=== PATIENT | female | born 1970 | race Caucasian/White ===

== ENCOUNTER 2017-08-05 13:51 | Inpatient (IN) | payer MEDICAID ==
[~2017-08-05] VITALS: Ht 154.9 cm; Wt 40.0 kg
[~2017-08-05 13:51] MED LIST: TRAM50TA2 PO
[2017-08-05] MEDS ORDERED: azithromycin 250mg tablet PO ONE (14:25)
[2017-08-05] MEDS ORDERED: CefTRIAXone 2gm/D5W 50ml 50 ML IV ONE (14:25)
[2017-08-05] MEDS ORDERED: ipratropium/albuterol 3ml nebule NEB ONE (14:25)
[2017-08-05] MEDS ORDERED: dexamethasone 4mg tablet PO ONE (14:25)
[2017-08-05] MEDS ORDERED: normal saline 1000ML IV soln IV ONE (14:25)
[2017-08-05 14:53] LABS: BASOPHILS # (AUTO) 0.1 X10'3 (0-0.2); BASOPHILS % (AUTO) 0.5 % (0-1); EOSINOPHILS # (AUTO) 0.2 X10'3 (0-0.9); EOSINOPHILS % (AUTO) 1.3 % (0-6); HEMATOCRIT 40.5 % (35.0-45.0); HEMOGLOBIN 13.6 g/dl (12.0-16.0); LYMPHOCYTES # (AUTO) 1.3 X10'3 (1.1-4.8); LYMPHOCYTES % (AUTO) 7.5 % (21-51); MEAN CORPUSCULAR HEMOGLOBIN 30.2 PG (27.0-31.0); MEAN CORPUSCULAR HGB CONC 33.5 % (33.0-36.5); MEAN CORPUSCULAR VOLUME 90.3 FL (78-98); MEAN PLATELET VOLUME 7.5 FL (7.4-10.4); MONOCYTES # (AUTO) 0.9 X10'3 (0-0.9); MONOCYTES % (AUTO) 5.4 % (2-12); NEUTROPHILS # (AUTO) 14.7 X10'3 (1.8-7.7); NEUTROPHILS % (AUTO) 85.3 % (42-75); PLATELET COUNT 353 X10'3 (140-440); RED BLOOD COUNT 4.48 X10'6 (4.20-5.60); RED CELL DISTRIBUTION WIDTH 14.8 % (11.5-14.5); WHITE BLOOD COUNT 17.3 X10'3 (4.5-11.0)
[2017-08-05 15:18] LABS: ALANINE AMINOTRANSFERASE 19 U/L (12-78); ALBUMIN 2.4 G/DL (3.4-5.0); ALBUMIN/GLOBULIN RATIO 0.5 (1.1-1.5); ALKALINE PHOSPHATASE 176 IU/L (46-116); ANION GAP 11 (8-16); ASPARTATE AMINO TRANSFERASE 25 U/L (10-37); BILIRUBIN,TOTAL 1.8 MG/DL (0.1-1.0); BLOOD UREA NITROGEN 9 MG/DL (7-18); BUN/CREATININE RATIO 9.9 (6.6-38.0); CALCIUM 8.8 MG/DL (8.5-10.1); CHLORIDE 94 MMOL/L (99-107); CREATININE 0.91 MG/DL (0.40-0.90); GLUCOSE 90 MG/DL (70-104); SODIUM 133 MMOL/L (135-145); TOTAL CARBON DIOXIDE 27.9 MMOL/L (24-32); TOTAL PROTEIN 7.5 G/DL (6.4-8.2); eGFR 67 ML/MIN
[2017-08-05 15:20] LABS: POTASSIUM 2.8 MMOL/L (3.5-5.1)
[2017-08-05] MEDS ORDERED: potassium Cl 20 mEq SR tablet PO ONE (15:25)
[2017-08-05] MEDS ORDERED: potassium CL 10mEq/100ml bag 100 ML IV SCH (15:25)
[2017-08-05] MEDS ORDERED: magnesium 2GM in 50ml NS 50 ML IV ONE (15:25)
[2017-08-05 15:47] LABS: MAGNESIUM 1.5 MG/DL (1.5-2.4)
[2017-08-05] MEDS: potassium 10mEq/100ml NS w/LIDOcaine (10mg/bag) IV SCH ×2 (16:38→16:41)
[2017-08-05] MEDS: normal saline 1000ml 1,000 ML IV SCH ×2 (16:52→23:15)
[2017-08-05] MEDS ORDERED: ondansetron/PF 4mg/2ml inj IV PRN (16:55)
[2017-08-05] MEDS ORDERED: ipratropium/albuterol 3ml nebule NEB PRN (16:55)
[2017-08-05] MEDS ORDERED: magnesium 4gm in 100ml NS 100 ML IV PRN (16:55)
[2017-08-05] MEDS ORDERED: mag hydrox/Alum hydrox/simeth 30ml oral suspension PO PRN (16:55)
[2017-08-05] MEDS ORDERED: haloperidol 5mg tablet PO PRN (16:55)
[2017-08-05] MEDS ORDERED: magnesium hydroxide 30ml (MOM) UD suspension PO PRN (16:55)
[2017-08-05] MEDS ORDERED: magnesium 2GM in 50ml NS 50 ML IV PRN (16:55)
[2017-08-05] MEDS ORDERED: LORazepam 2 mg/ml vial IV PRN (16:55)
[2017-08-05] MEDS ORDERED: acetaminophen 325mg tablet PO PRN (16:55)
[2017-08-05] MEDS ORDERED: potassium Cl 40MEQ/NS 500ml 500 ML IV PRN ×2 (16:55)
[2017-08-05] MEDS ORDERED: thiamine 100mg/ml 2ml inj. IV ONE (16:55)
[2017-08-05] MEDS ORDERED: dicyclomine 10 MG capsule PO PRN (16:55)
[2017-08-05] MEDS ORDERED: thiamine inj. 100 MG in normal saline 100ml IV soln 100 ML IV ONE (16:55)
[2017-08-05] MEDS ORDERED: haloperidol lactate 5mg/ml inj IM PRN (16:55)
[2017-08-05] MEDS ORDERED: potassium Cl 20 mEq SR tablet PO PRN (16:55)
[2017-08-05] MEDS ORDERED: dextrose 50%-water 50ml dispensing syringe IV PRN (16:55)
[2017-08-05] MEDS ORDERED: iohexol 350MG/ML 100ml bottle IV ONE (17:42)
[2017-08-05 18:30] VITALS: BP 112/64
[2017-08-05] MEDS: normal saline 1000ml 1,000 ML IV ONE ×2 (19:14→22:15)
[2017-08-05] MEDS: vancomycin/NS 1 GM ADD-VANTAGE 250 ML IV SCH (19:23)
[2017-08-05] MEDS: cefepime inj 2 GM in dextrose 5%-water 50ml 50 ML IV SCH (21:20)
[2017-08-05 23:12] VITALS: BP 99/64
[2017-08-05] MEDS: folic acid inj. 2 MG, thiamine inj. 100 MG, MVI, adult No.4 with vit. K 10 ML in dextro... IV SCH ×4 (23:14)
[2017-08-06] MEDS: normal saline 1000ml 1,000 ML IV SCH ×2 (04:01→09:01)
[2017-08-06 05:44] LABS: PROTHROMBIN TIME 10.2 SECONDS (9.0-12.0)
[2017-08-06 05:48] LABS: BASOPHILS % (AUTO) 0.1 % (0-1); EOSINOPHILS % (AUTO) 0 % (0-6); HEMATOCRIT 33.5 % (35.0-45.0); HEMOGLOBIN 11.3 g/dl (12.0-16.0); LYMPHOCYTES # (AUTO) 0.9 X10'3 (1.1-4.8); LYMPHOCYTES % (AUTO) 8.2 % (21-51); MEAN CORPUSCULAR HEMOGLOBIN 30.5 PG (27.0-31.0); MEAN CORPUSCULAR HGB CONC 33.6 % (33.0-36.5); MEAN CORPUSCULAR VOLUME 90.7 FL (78-98); MEAN PLATELET VOLUME 7.5 FL (7.4-10.4); MONOCYTES # (AUTO) 0.3 X10'3 (0-0.9); MONOCYTES % (AUTO) 3.1 % (2-12); NEUTROPHILS # (AUTO) 9.4 X10'3 (1.8-7.7); NEUTROPHILS % (AUTO) 88.6 % (42-75); PLATELET COUNT 306 X10'3 (140-440); RED CELL DISTRIBUTION WIDTH 14.6 % (11.5-14.5); WHITE BLOOD COUNT 10.6 X10'3 (4.5-11.0)
[2017-08-06 06:15] LABS: ALANINE AMINOTRANSFERASE 18 U/L (12-78); ALBUMIN 1.9 G/DL (3.4-5.0); ALBUMIN/GLOBULIN RATIO 0.4 (1.1-1.5); ALKALINE PHOSPHATASE 135 IU/L (46-116); AMYLASE 68 U/L (25-115); ANION GAP 10 (8-16); ASPARTATE AMINO TRANSFERASE 17 U/L (10-37); BILIRUBIN,TOTAL 0.5 MG/DL (0.1-1.0); BLOOD UREA NITROGEN 10 MG/DL (7-18); BUN/CREATININE RATIO 15.2 (6.6-38.0); CHLORIDE 102 MMOL/L (99-107); CREATININE 0.66 MG/DL (0.40-0.90); GLUCOSE 148 MG/DL (70-104); LIPASE 150 U/L (73-393); MAGNESIUM 1.5 MG/DL (1.5-2.4); PHOSPHORUS 2.6 MG/DL (2.3-4.5); POTASSIUM 3.1 MMOL/L (3.5-5.1); SODIUM 138 MMOL/L (135-145); TOTAL CARBON DIOXIDE 25.9 MMOL/L (24-32); TOTAL PROTEIN 6.2 G/DL (6.4-8.2); eGFR > 90 ML/MIN
[2017-08-06] MEDS: potassium Cl 20 mEq SR tablet PO PRN ×3 (07:13→17:29)
[2017-08-06] MEDS: vancomycin/NS 1 GM ADD-VANTAGE 250 ML IV SCH (07:15)
[2017-08-06] MEDS: K and/or MAG REPLACEMENT MC SCH (07:20)
[2017-08-06] MEDS ORDERED: enoxaparin 30mg/0.3ml syringe SQ SCH (08:00)
[2017-08-06] MEDS: cefepime inj 2 GM in dextrose 5%-water 50ml 50 ML IV SCH (09:12)
[2017-08-06] MEDS: folic acid inj. 2 MG, thiamine inj. 100 MG, MVI, adult No.4 with vit. K 10 ML in dextro... IV SCH ×4 (09:56)
[2017-08-06 11:00] VITALS: BP 110/72
[2017-08-06 11:50] VITALS: BP 113/71
[2017-08-06 11:52] LABS: HIV ANTIBODY 1&2 RAPID NON-REACTIVE (Neg)
[2017-08-06 12:30] VITALS: BP 117/75
[2017-08-06] MEDS: levoFLOXACIN-Levaquin 750MG/D5 150 ML IV SCH (14:31)
[2017-08-06] MEDS: ipratropium/albuterol 3ml nebule NEB SCH ×3 (15:33→23:18)
[2017-08-06] MEDS: Potassium Cl inj 20 MEQ in normal saline 1000ml 1,000 ML IV SCH (16:13)
[2017-08-06] MEDS ORDERED: NO HOME MEDS (17:01)
[2017-08-06 17:25] VITALS: BP 113/82
[2017-08-06 19:30] VITALS: BP 111/72
[2017-08-06] MEDS ORDERED: VANCOMYCIN LEVEL IV ONE (19:30)
[2017-08-06] MEDS: VANCOMYCIN 750MG IV in NS 250 ML IV SCH (20:03)
[2017-08-06] MEDS: lactobacillus rhamnosus 10,000 MMU CELLS/CAPSULE PO SCH (20:03)
[2017-08-07] VITALS: BP 129/80
[2017-08-07] MEDS: Potassium Cl inj 20 MEQ in normal saline 1000ml 1,000 ML IV SCH ×2 (03:34→13:04)
[2017-08-07] MEDS: ipratropium/albuterol 3ml nebule NEB SCH ×6 (04:07→23:00)
[2017-08-07 05:41] LABS: BASOPHILS % (AUTO) 0.3 % (0-1); EOSINOPHILS # (AUTO) 0.3 X10'3 (0-0.9); EOSINOPHILS % (AUTO) 1.6 % (0-6); HEMATOCRIT 31.2 % (35.0-45.0); HEMOGLOBIN 10.5 g/dl (12.0-16.0); LYMPHOCYTES # (AUTO) 2.5 X10'3 (1.1-4.8); LYMPHOCYTES % (AUTO) 15.5 % (21-51); MEAN CORPUSCULAR HEMOGLOBIN 30.1 PG (27.0-31.0); MEAN CORPUSCULAR HGB CONC 33.6 % (33.0-36.5); MEAN CORPUSCULAR VOLUME 89.8 FL (78-98); MEAN PLATELET VOLUME 6.7 FL (7.4-10.4); MONOCYTES # (AUTO) 1.1 X10'3 (0-0.9); MONOCYTES % (AUTO) 6.7 % (2-12); NEUTROPHILS # (AUTO) 12.4 X10'3 (1.8-7.7); NEUTROPHILS % (AUTO) 75.9 % (42-75); PLATELET COUNT 324 X10'3 (140-440); RED BLOOD COUNT 3.48 X10'6 (4.20-5.60); RED CELL DISTRIBUTION WIDTH 14.9 % (11.5-14.5); WHITE BLOOD COUNT 16.3 X10'3 (4.5-11.0)
[2017-08-07 06:05] LABS: ALANINE AMINOTRANSFERASE 17 U/L (12-78); ALBUMIN 1.7 G/DL (3.4-5.0); ALBUMIN/GLOBULIN RATIO 0.4 (1.1-1.5); ALKALINE PHOSPHATASE 103 IU/L (46-116); ANION GAP 9 (8-16); ASPARTATE AMINO TRANSFERASE 13 U/L (10-37); BILIRUBIN,TOTAL 0.3 MG/DL (0.1-1.0); BLOOD UREA NITROGEN 8 MG/DL (7-18); BUN/CREATININE RATIO 12.3 (6.6-38.0); CHLORIDE 110 MMOL/L (99-107); CREATININE 0.65 MG/DL (0.40-0.90); GLUCOSE 94 MG/DL (70-104); MAGNESIUM 1.2 MG/DL (1.5-2.4); PHOSPHORUS 3.1 MG/DL (2.3-4.5); POTASSIUM 3.2 MMOL/L (3.5-5.1); SODIUM 142 MMOL/L (135-145); TOTAL CARBON DIOXIDE 22.9 MMOL/L (24-32); TOTAL PROTEIN 5.5 G/DL (6.4-8.2); eGFR > 90 ML/MIN
[2017-08-07 07:04] VITALS: BP 129/79
[2017-08-07] MEDS: K and/or MAG REPLACEMENT MC SCH (08:00)
[2017-08-07 09:16] LABS: HBSAG SCREEN Negative (Negative); HEP B CORE AB, IGM Negative (Negative); HEPATITIS C ANTIBODY <0.1 s/co ratio (0.0-0.9)
[2017-08-07] MEDS: levoFLOXACIN-Levaquin 750MG/D5 150 ML IV SCH (09:30)
[2017-08-07] MEDS: enoxaparin 30mg/0.3ml syringe SQ SCH (09:31)
[2017-08-07] MEDS: magnesium Cl slow-release 64mg tablet PO PRN ×2 (09:32→20:03)
[2017-08-07] MEDS: lactobacillus rhamnosus 10,000 MMU CELLS/CAPSULE PO SCH ×2 (09:33→20:02)
[2017-08-07] MEDS: potassium Cl 20 mEq SR tablet PO PRN ×2 (09:33→17:56)
[2017-08-07] MEDS ORDERED: LORazepam 2 mg/ml vial IV PRN ×3 (11:00→16:55)
[2017-08-07] MEDS: folic acid inj. 2 MG, thiamine inj. 100 MG, MVI, adult No.4 with vit. K 10 ML in dextro... IV SCH ×4 (11:24)
[2017-08-07 11:47] VITALS: BP 122/70
[2017-08-07] MEDS: VANCOMYCIN 750MG IV in NS 250 ML IV SCH ×2 (12:09→20:02)
[2017-08-07] MEDS ORDERED: LORazepam 1 MG tablet PO PRN ×3 (16:55)
[2017-08-07 19:00] VITALS: BP 131/88
[2017-08-07] MEDS ORDERED: VANCOMYCIN LEVEL IV ONE (19:30)
[2017-08-07 23:56] VITALS: BP 124/63
[2017-08-08] MEDS: potassium Cl 20 mEq SR tablet PO PRN (00:36)
[2017-08-08] MEDS: Potassium Cl inj 20 MEQ in normal saline 1000ml 1,000 ML IV SCH ×3 (00:36→15:55)
[2017-08-08] MEDS: ipratropium/albuterol 3ml nebule NEB SCH ×6 (03:07→23:00)
[2017-08-08 06:07] LABS: BASOPHILS % (AUTO) 0.4 % (0-1); EOSINOPHILS # (AUTO) 0.2 X10'3 (0-0.9); EOSINOPHILS % (AUTO) 1.7 % (0-6); HEMATOCRIT 35.7 % (35.0-45.0); HEMOGLOBIN 11.9 g/dl (12.0-16.0); LYMPHOCYTES # (AUTO) 2.9 X10'3 (1.1-4.8); LYMPHOCYTES % (AUTO) 26.5 % (21-51); MEAN CORPUSCULAR HEMOGLOBIN 30.5 PG (27.0-31.0); MEAN CORPUSCULAR HGB CONC 33.4 % (33.0-36.5); MEAN CORPUSCULAR VOLUME 91.2 FL (78-98); MEAN PLATELET VOLUME 7.3 FL (7.4-10.4); MONOCYTES % (AUTO) 9.3 % (2-12); NEUTROPHILS # (AUTO) 6.7 X10'3 (1.8-7.7); NEUTROPHILS % (AUTO) 62.1 % (42-75); PLATELET COUNT 350 X10'3 (140-440); RED BLOOD COUNT 3.92 X10'6 (4.20-5.60); RED CELL DISTRIBUTION WIDTH 15.4 % (11.5-14.5); WHITE BLOOD COUNT 10.8 X10'3 (4.5-11.0)
[2017-08-08 06:39] LABS: ALANINE AMINOTRANSFERASE 16 U/L (12-78); ALBUMIN 1.9 G/DL (3.4-5.0); ALBUMIN/GLOBULIN RATIO 0.5 (1.1-1.5); ALKALINE PHOSPHATASE 107 IU/L (46-116); ANION GAP 10 (8-16); ASPARTATE AMINO TRANSFERASE 13 U/L (10-37); BILIRUBIN,TOTAL 0.4 MG/DL (0.1-1.0); BLOOD UREA NITROGEN 2 MG/DL (7-18); BUN/CREATININE RATIO 3.4 (6.6-38.0); CALCIUM 8.2 MG/DL (8.5-10.1); CHLORIDE 108 MMOL/L (99-107); CREATININE 0.58 MG/DL (0.40-0.90); GLUCOSE 83 MG/DL (70-104); PHOSPHORUS 4.2 MG/DL (2.3-4.5); POTASSIUM 3.8 MMOL/L (3.5-5.1); SODIUM 141 MMOL/L (135-145); eGFR > 90 ML/MIN
[2017-08-08 06:45] LABS: MAGNESIUM 0.9 MG/DL (1.5-2.4)
[2017-08-08 06:48] VITALS: BP 135/90
[2017-08-08] MEDS: enoxaparin 30mg/0.3ml syringe SQ SCH (07:08)
[2017-08-08] MEDS: lactobacillus rhamnosus 10,000 MMU CELLS/CAPSULE PO SCH ×2 (07:08→19:04)
[2017-08-08] MEDS: VANCOMYCIN 750MG IV in NS 250 ML IV SCH (07:09)
[2017-08-08] MEDS ORDERED: vancomycin/NS 1 GM ADD-VANTAGE 250 ML IV SCH (08:00)
[2017-08-08] MEDS: K and/or MAG REPLACEMENT MC SCH (08:00)
[2017-08-08] MEDS: levoFLOXACIN-Levaquin 750MG/D5 150 ML IV SCH (08:16)
[2017-08-08] MEDS: folic acid inj. 2 MG, thiamine inj. 100 MG, MVI, adult No.4 with vit. K 10 ML in dextro... IV SCH ×4 (10:09)
[2017-08-08 11:43] VITALS: BP 121/77
[2017-08-08] MEDS: pantoprazole 40mg Tablet.DR PO SCH (15:53)
[2017-08-08] MEDS: predniSONE 20 mg tablet PO SCH (15:53)
[2017-08-08] MEDS: doxycycline hyclate 100mg tablet.DR PO SCH (17:29)
[2017-08-08 19:00] VITALS: BP 119/82
[2017-08-08] MEDS: HYDROcodone/acetaminophen 5mg/325mg tablet PO PRN (19:04)
[2017-08-08 23:30] VITALS: BP 124/87
[2017-08-09] MEDS: ipratropium/albuterol 3ml nebule NEB SCH ×3 (03:02→11:20)
[2017-08-09] MEDS: Potassium Cl inj 20 MEQ in normal saline 1000ml 1,000 ML IV SCH (04:50)
[2017-08-09 06:23] LABS: ALANINE AMINOTRANSFERASE 17 U/L (12-78); ALBUMIN/GLOBULIN RATIO 0.5 (1.1-1.5); ALKALINE PHOSPHATASE 108 IU/L (46-116); ANION GAP 6 (8-16); ASPARTATE AMINO TRANSFERASE 12 U/L (10-37); BILIRUBIN,TOTAL 0.3 MG/DL (0.1-1.0); BLOOD UREA NITROGEN 9 MG/DL (7-18); BUN/CREATININE RATIO 14.3 (6.6-38.0); CALCIUM 8.3 MG/DL (8.5-10.1); CHLORIDE 106 MMOL/L (99-107); CREATININE 0.63 MG/DL (0.40-0.90); GLUCOSE 139 MG/DL (70-104); MAGNESIUM 1.7 MG/DL (1.5-2.4); PHOSPHORUS 3.4 MG/DL (2.3-4.5); POTASSIUM 4.6 MMOL/L (3.5-5.1); SODIUM 139 MMOL/L (135-145); TOTAL CARBON DIOXIDE 27.4 MMOL/L (24-32); TOTAL PROTEIN 6.4 G/DL (6.4-8.2); eGFR > 90 ML/MIN
[2017-08-09 06:29] LABS: BASOPHILS % (AUTO) 0.1 % (0-1); EOSINOPHILS # (AUTO) 0.1 X10'3 (0-0.9); EOSINOPHILS % (AUTO) 0.7 % (0-6); HEMATOCRIT 36.2 % (35.0-45.0); LYMPHOCYTES # (AUTO) 1.1 X10'3 (1.1-4.8); LYMPHOCYTES % (AUTO) 12.7 % (21-51); MEAN CORPUSCULAR HEMOGLOBIN 30.2 PG (27.0-31.0); MEAN CORPUSCULAR HGB CONC 33.2 % (33.0-36.5); MONOCYTES # (AUTO) 0.5 X10'3 (0-0.9); MONOCYTES % (AUTO) 5.5 % (2-12); NEUTROPHILS # (AUTO) 7.3 X10'3 (1.8-7.7); PLATELET COUNT 420 X10'3 (140-440); RED BLOOD COUNT 3.98 X10'6 (4.20-5.60)
[2017-08-09] MEDS: K and/or MAG REPLACEMENT MC SCH (06:48)
[2017-08-09 07:30] VITALS: BP 127/79
[2017-08-09] MEDS ORDERED: multivitamins, therapeutics tablet PO SCH (08:00)
[2017-08-09] MEDS ORDERED: folic acid 1mg tablet PO SCH (08:00)
[2017-08-09] MEDS ORDERED: thiamine 100mg tablet PO SCH (08:00)
[2017-08-09] MEDS: predniSONE 20 mg tablet PO SCH (08:08)
[2017-08-09] MEDS: doxycycline hyclate 100mg tablet.DR PO SCH (08:08)
[2017-08-09] MEDS: pantoprazole 40mg Tablet.DR PO SCH (08:08)
[2017-08-09] MEDS: lactobacillus rhamnosus 10,000 MMU CELLS/CAPSULE PO SCH (08:08)
[2017-08-09] MEDS: HYDROcodone/acetaminophen 5mg/325mg tablet PO PRN (08:11)
[2017-08-09] MEDS ORDERED: enoxaparin 40mg/0.4ml syringe SQ SCH (08:20)
[2017-08-09] MEDS ORDERED: FOLI1TAB16 PO (10:15)
[2017-08-09] MEDS ORDERED: THI100T PO (10:15)
[2017-08-09] MEDS ORDERED: OMEP20TA23 PO (10:15)
[2017-08-09] MEDS ORDERED: LEVO750T46 PO (10:15)
[2017-08-09] MEDS ORDERED: DOXY-200 PO (10:15)
[2017-08-09] MEDS ORDERED: PRED10TA23 PO (10:15)
[2017-08-09] MEDS ORDERED: ALBU6.7H INH (10:20)
[2017-08-09] MEDS ORDERED: levoFLOXACIN 750MG TABLET PO SCH (11:00)
[2017-08-09 11:06] VITALS: BP 126/76
[2017-08-09] MEDS ORDERED: LORazepam 1 MG tablet PO PRN ×2 (16:55)
[2017-08-09] MEDS ORDERED: LORazepam 2 mg/ml vial IV PRN ×2 (16:55)
[2017-08-09] MEDS ORDERED: VANCOMYCIN LEVEL IV NR (19:30)
== END 2017-08-09 12:50 | disposition home or self-care (01) | DRG 720 ==
LOC: ER 13:52 → ED HOLD 16:52 → MED 3N 18:31
PROVIDERS: ADMIT Family Medicine; ATTEND Internal Medicine
PROC: B32T1ZZ Computerized Tomography (CT Scan) of Left Pulmonary Artery using Low Osmolar Contrast (ICD-10-PCS; principal; 2017-08-05)
PROC: B3201ZZ Computerized Tomography (CT Scan) of Thoracic Aorta using Low Osmolar Contrast (ICD-10-PCS; 2017-08-05)
PROC: B32S1ZZ Computerized Tomography (CT Scan) of Right Pulmonary Artery using Low Osmolar Contrast (ICD-10-PCS; 2017-08-05)
PROC: 02HV33Z Insertion of Infusion Device into Superior Vena Cava, Percutaneous Approach (ICD-10-PCS; 2017-08-05)
PROC: B548ZZA Ultrasonography of Superior Vena Cava, Guidance (ICD-10-PCS; 2017-08-05)
DX: A41.9 Sepsis, unspecified organism (principal); E43 Unspecified severe protein-calorie malnutrition; J90 Pleural effusion, not elsewhere classified; J18.1 Lobar pneumonia, unspecified organism; J47.0 Bronchiectasis with acute lower respiratory infection; E87.6 Hypokalemia; F31.9 Bipolar disorder, unspecified; K76.9 Liver disease, unspecified; E83.42 Hypomagnesemia; F41.9 Anxiety disorder, unspecified; F17.210 Nicotine dependence, cigarettes, uncomplicated; F12.90 Cannabis use, unspecified, uncomplicated; F10.10 Alcohol abuse, uncomplicated; F15.10 Other stimulant abuse, uncomplicated; N28.9 Disorder of kidney and ureter, unspecified; Z68.1 Body mass index [BMI] 19.9 or less, adult; Z90.49 Acquired absence of other specified parts of digestive tract; Z59.0 Homelessness; Z88.2 Allergy status to sulfonamides; Z88.8 Allergy status to other drugs, medicaments and biological substances; Z91.030 Bee allergy status; Z80.0 Family history of malignant neoplasm of digestive organs; Z80.3 Family history of malignant neoplasm of breast; Z80.49 Family history of malignant neoplasm of other genital organs; Z71.6 Tobacco abuse counseling
CPT/HCPCS: 36415; 36569; 71045; 71275; 80053; 80202; 82150; 82948; 83605; 83690; 83735; 83880; 84100; 84145; 84484; 85025; 85610; 86480; 86703; 86705; 86706; 86803; 87040; 87070; 87340; 93005; 93306; 94640; 94667; 94760; 96365; 99285; J0692; J0696; J1650; J1956; J2060; J3370; J3411; J3475; J3480; J3490; J7030; J7060; J7512; J8540; Q9967

== ENCOUNTER 2018-03-27 10:08 | Emergency (ER) | payer MEDICAID ==
[~2018-03-27] VITALS: Ht 160 cm; Wt 42.0 kg
[~2018-03-27 10:08] MED LIST changes: +ALBU6.7H INH; +DOXY-200 PO; +FOLI1TAB16 PO; +LEVO750T46 PO; +OMEP20TA23 PO; +THI100T PO; -TRAM50TA2 PO
[2018-03-27 10:36] VITALS: BP 148/91
[2018-03-27] MEDS ORDERED: PENI500T2 PO (12:08)
== END 2018-03-27 12:26 | disposition home or self-care (01) ==
LOC: ER 10:09
DX: K04.7 Periapical abscess without sinus (principal); J44.9 Chronic obstructive pulmonary disease, unspecified; F12.10 Cannabis abuse, uncomplicated; F15.10 Other stimulant abuse, uncomplicated; Z88.2 Allergy status to sulfonamides; Z88.8 Allergy status to other drugs, medicaments and biological substances; Z88.5 Allergy status to narcotic agent; Z79.899 Other long term (current) drug therapy; Z87.440 Personal history of urinary (tract) infections; Z90.49 Acquired absence of other specified parts of digestive tract; Z59.0 Homelessness; Z56.0 Unemployment, unspecified
CPT/HCPCS: 99283

== ENCOUNTER 2019-03-02 09:03 | Emergency (ER) | payer MEDICAID ==
[~2019-03-02] VITALS: Ht 160 cm; Wt 45.0 kg
[~2019-03-02 09:03] MED LIST changes: -ALBU6.7H INH; +ALBU6.7H9 INH; -DOXY-200 PO; +DOXY-243 PO
[2019-03-02] MEDS ORDERED: metoclopramide 5 mg/ml inj IV ONE (09:25)
[2019-03-02] MEDS ORDERED: normal saline 1000ml 1,000 ML IV ONE (09:25)
[2019-03-02] MEDS ORDERED: diphenhydrAMINE 50 mg/ml inj IV ONE (09:25)
[2019-03-02] MEDS ORDERED: benzonatate 100mg capsule PO ONE (09:35)
[2019-03-02 10:19] LABS: CLARITY,URINE SLIGHTLY CLOUDY (Clear); COLOR,URINE YELLOW (Yellow); GLUCOSE, URINE NEGATIVE (Neg); KETONES,URINE NEGATIVE (Neg); LEUKOCYTE ESTERASE ,URINE LARGE (Neg); NITRITES, URINE POSITIVE (Neg); OCCULT BLOOD,URINE TRACE-INTACT (Neg); PROTEIN,URINE NEGATIVE (Neg); URINE HCG NEGATIVE (NEG); UROBILINOGEN,URINE 0.2 E.U/dL (0.2-1.0)
[2019-03-02] MEDS ORDERED: metoclopramide 10mg tablet PO ONE (10:20)
[2019-03-02] MEDS ORDERED: diphenhydrAMINE 25mg capsule PO ONE (10:20)
--- NOTE | 2019-03-02 10:21 | NUR ---
Attempted IV start x3, spoke with Dr. eason regarding need for IV at this time per patient request. Dr. Eason stated that she would drink fluids and he would change IV medications to PO. Tatum PAULSON aware of change.
[2019-03-02 10:24] LABS: UA COLLECTION TYPE CLN CATCH MIDSTREAM
[2019-03-02 10:31] LABS: BACTERIA,URINE 4+ /HPF (Neg); MUCUS STRANDS FEW /LPF (Neg); RENAL CELLS, URINE FEW /HPF; SQUAMOUS EPITHELIAL CELL,UR MANY /LPF (FEW); TRANSITIONAL EPI CELLS,URINE FEW /HPF; TRICHOMONAS,URINE MOD /HPF (NEGATIVE); WBC,URINE 50-100 /HPF (0-4)
[2019-03-02 10:34] LABS: URINE AMPHETAMINE SCREEN POSITIVE (Neg); URINE BARBITUATE SCREEN NEGATIVE (Neg); URINE BENZODIAZEPINES SCREEN NEGATIVE (Neg); URINE CANNABINOID SCREEN POSITIVE (Neg); URINE COCAINE SCREEN NEGATIVE (Neg); URINE METHADONE SCREEN NEGATIVE (Neg); URINE OPIATE SCREEN NEGATIVE (Neg); URINE PHENCYCLIDINE SCREEN NEGATIVE (Neg)
[2019-03-02] MEDS ORDERED: ketorolac trometh inj. 60 MG/2 ML VIAL IM ONE (10:35)
[2019-03-02] MEDS ORDERED: cephalexin 250mg capsule PO ONE (10:45)
[2019-03-02] MEDS ORDERED: CEPH250T PO (10:50)
[2019-03-02 11:23] VITALS: BP 140/81
== END 2019-03-02 11:37 | disposition home or self-care (01) ==
LOC: ER 09:03
DX: N39.0 Urinary tract infection, site not specified (principal); G43.909 Migraine, unspecified, not intractable, without status migrainosus; J00 Acute nasopharyngitis [common cold]; J44.9 Chronic obstructive pulmonary disease, unspecified; F12.90 Cannabis use, unspecified, uncomplicated; F15.90 Other stimulant use, unspecified, uncomplicated; F10.99 Alcohol use, unspecified with unspecified alcohol-induced disorder; Z90.49 Acquired absence of other specified parts of digestive tract; Z98.890 Other specified postprocedural states; Z59.0 Homelessness; Z56.0 Unemployment, unspecified; Z88.2 Allergy status to sulfonamides; Z88.8 Allergy status to other drugs, medicaments and biological substances; Z79.899 Other long term (current) drug therapy; Y90.9 Presence of alcohol in blood, level not specified
CPT/HCPCS: 70450; 71046; 72125; 80305; 81001; 81025; 96372; 99284; J1200; J1885; J2765; Q0163; J8597

== ENCOUNTER 2019-05-09 19:21 | Emergency (ER) | payer MEDICAID ==
[~2019-05-09] VITALS: Ht 158.8 cm; Wt 40.9 kg
[2019-05-09 19:33] VITALS: BP 180/106
== END 2019-05-09 20:03 | disposition left against medical advice (07) ==
LOC: ER 19:21
DX: J06.9 Acute upper respiratory infection, unspecified (principal); J44.9 Chronic obstructive pulmonary disease, unspecified; F10.10 Alcohol abuse, uncomplicated; F12.90 Cannabis use, unspecified, uncomplicated; F15.90 Other stimulant use, unspecified, uncomplicated; Z90.49 Acquired absence of other specified parts of digestive tract; Z98.890 Other specified postprocedural states; Z59.0 Homelessness; Z56.0 Unemployment, unspecified; Z88.2 Allergy status to sulfonamides; Z88.8 Allergy status to other drugs, medicaments and biological substances; Z79.899 Other long term (current) drug therapy; Y90.9 Presence of alcohol in blood, level not specified
CPT/HCPCS: 99281

== ENCOUNTER 2023-04-22 14:48 | Emergency (ER) | payer MEDICAID ==
[~2023-04-22] VITALS: Ht 160 cm; Wt 42.6 kg
[~2023-04-22 14:48] MED LIST changes: +ALBU6.7H14 INH; -ALBU6.7H9 INH; -FOLI1TAB16 PO; +FOLI1TAB27 PO; -LEVO750T46 PO; +LEVO750T68 PO
[2023-04-22 15:03] VITALS: BP 139/75; PULSE 101; RESP 20; TEMP 99; O2SAT 94
== END 2023-04-22 17:33 | disposition left against medical advice (07) ==
LOC: ER 14:49
DX: R05.9 Cough, unspecified (principal); Z53.21 Procedure and treatment not carried out due to patient leaving prior to being seen by health care provider
CPT/HCPCS: 99281

== ENCOUNTER 2025-02-25 19:26 | Emergency (ER) | payer MEDICAID ==
[~2025-02-25] VITALS: Ht 157.5 cm; Wt 40.9 kg
--- NOTE | 2025-02-25 19:49 | Physician Documentation ---
History of Present Illness ~ Chief Complaint: Foot pain Stated Complaint: L FOOT PAIN Time Seen by MD: 19:41 Primary Medical Doctor: [facility] Patient presents to the emergency room for evaluation of left foot pain after dropping a plastic palate upon it earlier today. She has had nothing for the pain. Able to move all toes. Tetanus witin 5 years: No Medication Reconciliation Allergies: Coded Allergies: procaine (Verified Allergy, Severe, HYPOTENSION, 02/25/25) Sulfa (Sulfonamide Antibiotics) (Verified Allergy, Intermediate, HIVES, 05/09/19) prochlorperazine edisylate (Verified Allergy, Intermediate, MUSCLE RIGIDITY, 05/09/19) prochlorperazine maleate (Verified Allergy, Intermediate, MUSCLE RIGIDITY, 05/09/19) quetiapine (Verified Allergy, Unknown, 05/09/19) nicotine (Unverified Adverse Reaction, Severe, 05/09/19) Significant hypotensive episode Uncoded Allergies: BEE STINGS (Allergy, Intermediate, 03/07/11) Scheduled Doxycycline Hyclate (Doxycycline Hyclate), 100 MG PO BID Folic Acid* (Folic Acid*), 1 MG PO DAILY Levofloxacin (Levofloxacin), 750 MG PO DAILY Omeprazole Magnesium (Prilosec Otc), 20 MG PO DAILY Thiamine Hcl (Thiamine Hcl), 100 MG PO DAILY Scheduled PRN Albuterol Sulfate (Proventil Hfa), 2 PUFFS INH Q4H PRN for SOB or wheezing Past Medical History Past Medical History: COPD, Liver Disease, UTI Past Surgical History: appendectomy, other Patient History: Breast malignancy maternal grandmother FH: liver cancer FH: prostate cancer FH: uterine cancer Alcohol Use: Alcoholic Drug Use: marijuana, methamphetamine Lives In: Homeless Occupation: unemployed Review of Systems ROS All review of systems negative except as per HPI Physical Exam Vital Signs: Temperature: 97.2, Source: Oral, Heart Rate: 103, Respiratory Rate: 16, BP: 153/101, Pulse Oximetry: 99, Weight: 40.900 Physical Exam General: Patient is awake, alert, oriented x4 in no acute distress Head: Normocephalic and atraumatic. Eyes: Conjunctival normal. EOMI. PERRL. ENT: Mucous membranes moist. Neck: Supple, trachea is midline. Chest: Clear to auscultation bilaterally without rales, rhonchi, or wheezes. There is no accessory muscle use or retractions. Cardiac: RRR without murmurs, gallops, or rubs. Extremity: Mild swelling to dorsum of foot. No appreciable ecchymosis or signs of infection. Neurovascularly intact. No abrasions. Progress Results/Orders Results/Orders Orders - OREN EASON MD Foot, Complete (3vw Min) (02/25/25 19:41) Completed Orders - OREN EASON MD Foot, Complete (3vw Min) (02/25/25 19:41) Ibuprofen Tablet (Motrin Tablet) (02/25/25 19:45) Acetaminophen 325mg Tablet (Tylenol Tabl (02/25/25 19:45) Medications Received in ER Medications (Trade) Dose Ordered Sig/[place] Route PRN Reason Start Time Stop Time Status Last Admin Dose Admin (Motrin tablet) 800 mg ONCE ONCE PO 02/25/25 19:45 02/25/25 19:46 DC 02/25/25 19:57 800 MG (Tylenol tablet) 650 mg ONCE ONCE PO 02/25/25 19:45 02/25/25 19:46 DC 02/25/25 19:57 650 MG Vital Signs 02/25/25 19:28 Temp 97.2 Pulse 103 Resp 16 B/P (MAP) 153/101 Pulse Ox 99 Medical Decision Making Additional information obtaine: old records Findings Patient presented to the emergency room with left foot pain as per HPI. Differentials include but are not limited to fractures, dislocations, tendinous injury, vascular injury. Physical exam is reassuring. X-ray is negative. Patient placed in a boot in his neurovascularly intact status post boot placement. Rice therapy discussed. General Diff Dx:Considerations: Include: Abrasion, Contusion, Fracture, Hematoma, Laceration, Malunion, Neurovascular injury, Open fracture, Sprain, Ulcer, Other Knee Diff Dx:Considerations: Include: Abrasion, Arthritis, Contusion, DJD, Fracture-femur, Fracture-fibula, Fracture-patella, Fracture-tibia, Gout, Hematoma, Laceration, Meniscus injury, Neurovascular injury, Open fracture, Rheumatoid arthritis, Septic, Sprain, Sprain-MCL, Sprain-LCL, Sprain-ACL, Sprain-PCL, Other Ankle Diff Dx:Considerations: Include: Abrasion, Arthritis, Contusion, DJD, Fracture-metatarsal, Fracture-fibula, Fracture-tarsal, Fracture-tibia, Gout, Hematoma, Laceration, Malunion, Neurovascular injury, Nonunion, Open fracture, Osteomyelitis, Rheumatoid arthritis, Sprain, Septic, Ulcer, Other Foot Diff Dx:Considerations: Include: Abrasion, Arthritis, Cellulitis, Contusion, Dislocation, DJD, Fracture-metatarsal, Fracture-phalynx, Fracture- tarsal, Gout, Hematoma, Ingrown toenail, Laceration, Malunion, Neurovascular injury, Open fracture, Paronychia, Puncture, Rheumatoid, Sprain, Septic, Subungual hematoma, Ulcer, Other Toe Diff Dx:Considerations: Include: Abrasion, Cellulitis, Contusion, Dislocation, Felon, Fracture, Hematoma, Laceration, Neurovascular injury, Open fracture, Paronychia, Subungual hematoma, Other Departure Disposition: 01 HOME / SELF CARE / HOMELESS Impression: Primary Impression: Foot pain Condition: Stable Discharge Instructions: RICE Therapy for Routine Care of Injuries Referrals: NO PRIMARY CARE PROVIDER (PCP) Signature Scribe Signature: No scribe Attestation: The note accurately reflects work and decisions made by me.Oren Eason MD 02/25/25 20:08 OREN EASON MD Feb 25, 2025 19:49
[2025-02-25] MEDS: ibuprofen tablet 400 MG TABLET PO ONE (19:57)
--- NOTE | 2025-02-25 20:00 | RADIOLOGY REPORT ---
DI FOOT, COMPLETE (3VW MIN) Comparison: None Indication: FOOT PAIN LEFT Findings: No acute fracture or dislocation. Diffuse osteopenia. IMPRESSION: No acute fracture or dislocation.
[2025-02-25 20:31] VITALS: BP 126/84; PULSE 78; RESP 18; TEMP 98.1; O2SAT 99
== END 2025-02-25 20:35 | disposition home or self-care (01) ==
LOC: ER 19:26
DX: M79.672 Pain in left foot (principal); J44.9 Chronic obstructive pulmonary disease, unspecified; F12.90 Cannabis use, unspecified, uncomplicated; F15.90 Other stimulant use, unspecified, uncomplicated; F10.90 Alcohol use, unspecified, uncomplicated; Z90.49 Acquired absence of other specified parts of digestive tract; Z88.2 Allergy status to sulfonamides; Z87.440 Personal history of urinary (tract) infections; Z88.8 Allergy status to other drugs, medicaments and biological substances; Z79.899 Other long term (current) drug therapy; Z56.0 Unemployment, unspecified; Z59.00 Homelessness unspecified; Y90.9 Presence of alcohol in blood, level not specified
CPT/HCPCS: 29515; 73630; 99283; L4360